=== PATIENT | female | born 1985 | race Caucasian/White ===

== ENCOUNTER 2020-01-13 12:13 | Emergency (ER) | payer MEDICAID ==
[~2020-01-13] VITALS: Ht 162.6 cm; Wt 143.2 kg
[2020-01-13] MEDS ORDERED: ACETAMINOPHEN 500 MG TABLET PO ONE (13:00)
[2020-01-13 13:56] LABS: HEMATOCRIT 41.4 % (36-46); HEMOGLOBIN 13.5 g/dL (12.0-16.0); MEAN CORPUSCULAR HEMOGLOBIN 27.3 pg (26.0-34.0); MEAN CORPUSCULAR HGB CONC 32.6 G/dL (31.0-37.0); MEAN CORPUSCULAR VOLUME 84 fL (80-100); PLATELET COUNT (AUTO) 254 K/uL (150-450); RED BLOOD CELL COUNT(AUTO) 4.95 MIL/uL (4.00-5.20); RED CELL DISTRIBUTION WIDTH 15.3 % (11.5-14.5)
[2020-01-13 14:07] LABS: ANION GAP 13 mmol/L (8-16); CALCIUM, TOTAL 9.9 mg/dL (8.8-10.5); CARBON DIOXIDE 21 mmol/L (22-29); CHLORIDE 103 mmol/L (98-107); CREATININE 0.77 mg/dL (0.60-1.30); GLOMERULAR FILTR. RATE CALC > 60 mL/min (>60); GLUCOSE,RANDOM 107 mg/dL (70-110); POTASSIUM 4.1 mmol/L (3.5-5.1); SODIUM SERUM 137 mmol/L (136-145); UREA NITROGEN, BLOOD 11 mg/dL (7-18)
[2020-01-13 14:13] LABS: ALANINE AMINOTRANSFERASE 33 U/L (12-78); ALBUMIN 3.9 g/dL (3.4-5.0); ALKALINE PHOSPHATASE 91 U/L (46-116); ASPARTATE AMINOTRANSFERASE 24 U/L (15-37); BILIRUBIN,TOTAL 0.6 mg/dL (0.1-1.0); TOTAL PROTEIN, SERUM 8.6 g/dL (6.4-8.2)
[2020-01-13 14:30] LABS: HCG,QUANTITATIVE < 1 mIU/mL (0-6)
[2020-01-13 14:52] LABS: BAND NEUTROPHILS % (MANUAL) 4 % (0-5); LYMPHOCYTES % (MANUAL) 6 % (22-44); MONOCYTES % (MANUAL) 7 % (2-9); SEGMENTED NEUTROPHILS % 83 % (40-70)
[2020-01-13] MEDS ORDERED: SODIUM CHLORIDE 0.9% 1,000 ML IV ONE ×2 (15:30→17:00)
[2020-01-13 16:42] LABS: INFLUENZA TYPE A NEGATIVE FOR TYPE A (NEGATIVE); INFLUENZA TYPE B NEGATIVE FOR TYPE B (NEGATIVE)
[2020-01-13 17:04] VITALS: BP 136/75
[2020-01-13 17:48] LABS: APPEARANCE,URINE CLEAR (CLEAR); BILIRUBIN,URINE NEGATIVE (NEGATIVE); GLUCOSE, URINE (UA) 100 mg/dL (NEGATIVE); KETONES,URINE NEGATIVE (NEGATIVE); LEUKOCYTE ESTERASE ,URINE SMALL (NEGATIVE); NITRATE,URINE NEGATIVE (NEGATIVE); OCCULT BLOOD,URINE NEGATIVE (NEGATIVE); PROTEIN,URINE NEGATIVE (NEGATIVE); UROBILINOGEN,URINE 0.2 mg/dL (<=1.0)
[2020-01-13 18:08] LABS: BACTERIA,URINE Few /HPF (None Seen); RBC,URINE None Seen /HPF (0-2); SQUAMOUS EPITHELIAL CELL,UR Moderate /LPF (None Seen)
== END 2020-01-13 18:02 | disposition home or self-care (01) ==
LOC: EMS 12:17
DX: B34.9 Viral infection, unspecified (principal); R73.09 Other abnormal glucose; Z71.89 Other specified counseling
CPT/HCPCS: 36415; 71045; 80053; 81001; 83605; 84702; 85025; 85379; 87804; 93005; 99285; J7030

== ENCOUNTER 2020-01-27 12:27 | Emergency (ER) | payer MEDICAID ==
[~2020-01-27] VITALS: Ht 162.6 cm; Wt 144.6 kg
[2020-01-27] MEDS ORDERED: ACETAMINOPHEN 500 MG TABLET PO ONE (13:15)
[2020-01-27] MEDS ORDERED: DOXYCYCLINE HYCLATE 100 MG CAPSULE PO ONE (14:30)
[2020-01-27 14:36] VITALS: BP 142/84
== END 2020-01-27 14:44 | disposition home or self-care (01) ==
LOC: EMS 12:32
DX: L08.9 Local infection of the skin and subcutaneous tissue, unspecified (principal)

== ENCOUNTER 2020-08-27 14:42 | Emergency (ER) | payer MEDICAID ==
[~2020-08-27] VITALS: Ht 162.6 cm; Wt 146.8 kg
[2020-08-27] MEDS ORDERED: GUAIF600 PO (14:50)
[2020-08-27] MEDS ORDERED: IBUPROFEN 600 MG TABLET PO ONE (15:45)
[2020-08-27] MEDS ORDERED: ACETAMINOPHEN/CODEINE 300-30 MG TABLET PO ONE (15:45)
[2020-08-27] MEDS ORDERED: GuaiFENesin/D-METHORPHAN [SUGAR-FREE] 200-20MG/10 ML SYRUP UDCUP PO ONE (15:45)
[2020-08-27 16:02] VITALS: BP 118/65
[2020-08-27 16:18] LABS: COVID AG,FIA SOURCE NASOPHARYNGEAL
[2020-08-27 16:46] LABS: INFLUENZA TYPE A NEGATIVE FOR TYPE A (NEGATIVE); INFLUENZA TYPE B NEGATIVE FOR TYPE B (NEGATIVE)
== END 2020-08-27 18:00 | disposition home or self-care (01) ==
LOC: EMS 15:21
DX: J40 Bronchitis, not specified as acute or chronic (principal); R51.9 Headache, unspecified; R42 Dizziness and giddiness; Z20.828 Contact with and (suspected) exposure to other viral communicable diseases
CPT/HCPCS: 87426; 87804; 71045-TC